=== PATIENT | female | born 1955 | race Caucasian/White ===

== ENCOUNTER 2019-02-19 00:53 | Emergency (ER) | payer BC ==
[~2019-02-19] VITALS: Ht 165 cm; Wt 65.9 kg
[2019-02-19] MEDS ORDERED: LEVO75TA6 (01:10)
[2019-02-19] MEDS ORDERED: LACTATED RINGERS 1,000 ML IV ONE (01:24)
[2019-02-19 01:26] LABS: BILIRUBIN,URINE NEGATIVE (NEGATIVE); CLARITY,URINE CLEAR; COLOR,URINE YELLOW; GLUCOSE, URINE (UA) NEGATIVE (NEGATIVE); KETONES,URINE NEGATIVE (NEGATIVE); LEUKOCYTE ESTERASE ,URINE 3+ (NEGATIVE); NITRITE,URINE NEGATIVE (NEGATIVE); PH,URINE 6 (5-9); PROTEIN,URINE 1+ (NEGATIVE); UROBILINOGEN,URINE NORMAL (NORMAL)
--- NOTE | 2019-02-19 01:28 | ED Abdominal Pain ---
General Chief Complaint: Abdominal/GI Problems Stated Complaint: PAIN IN RT SIDE Nursing Triage Note: intermittant right sided abdominal pain since 02/14/19, denies n/v/d, fever Sepsis Screen: No Definite Risk Source of Information: Patient History of Present Illness Date Seen by Provider: Feb 19, 2019 Time Seen by Provider: 01:04 Initial Comments PT ARRIVES VIA POV FROM HOME C/O RIGHT MID ABDOMINAL PAIN SINCE Thursday02/14/19 STATES PAIN COMES AND GOES, THEN STATES "IT'S PROBABLY BEEN THERE THE WHOLE TIME--I JUST IGNORE IT" NOTHING WORSENS OR IMPROVES PAIN NO RADIATION OF PAIN NO NAUSEA/VOMITING/DIARRHEA/CONSTIPATION NO URINARY SYMPTOMS NO FEVER NO HISTORY OF SIMILAR NO PRIOR ABDOMINAL SURGERY PT STATES SHE DOES NOT HAVE ANY MEDICAL PROBLEMS, EXERCISES REGULARLY--RUNS, ETC. HAS NOT TAKEN ANYTHING FOR PAIN SYMPTOMS NO DIFFERENT TODAY PCP: DR. RIVERA Allergies and Home Medications Allergies Coded Allergies: No Known Drug Allergies (Unverified , 02/19/19) Patient Home Medication List Home Medication List Reviewed: Yes Review of Systems Review of Systems Constitutional: no symptoms reported Respiratory: No Symptoms Reported Cardiovascular: No Symptoms Reported Gastrointestinal: See HPI, Abdominal Pain; Denies Constipated, Denies Diarrhea, Denies Nausea, Denies Poor Appetite, Denies Vomiting Genitourinary: No Symptoms Reported Musculoskeletal: no symptoms reported; No back pain Skin: no symptoms reported Psychiatric/Neurological: No Symptoms Reported Endocrine: No Symptoms Reported Hematologic/Lymphatic: No Symptoms Reported Past Jskxkbi-Bozgvs-Kaudsb Hx Patient Social History Alcohol Use: Rarely Uses Recreational Drug Use: No Smoking Status: Never a Smoker 2nd Hand Smoke Exposure: No Recent Foreign Travel: No Contact w/Someone Who Travel: No Recent Infectious Disease Expo: No Recent Hopitalizations: No Physical Abuse: No Sexual Abuse: No Mistreated: No Fear: No Immunizations Up To Date Tetanus Booster (TDap): Unknown Seasonal Allergies Seasonal Allergies: No Past Medical History Surgeries: No Respiratory: No Cardiac: No Neurological: No : No 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 oz. kg; 24.00 BMI Method: General Appearance: WD/WN, no apparent distress, other (WALKS UPRIGHT AND MOVES WITHOUT DIFFICULTY) HEENT: PERRL/EOMI; No scleral icterus (R), No scleral icterus (L), No pale conjunctivae (R), No pale conjunctivae (L) Neck: normal inspection Respiratory: normal breath sounds, no respiratory distress, no accessory muscle use Cardiovascular: regular rate, rhythm, no edema, no JVD, no murmur Gastrointestinal: normal bowel sounds, soft, no organomegaly, no pulsatile mass; No distended, No guarding, No rebound; tenderness (MILD TENDERNESS TO RIGHT MID ABDOMEN); No hernia, No mass Extremities: normal inspection, no pedal edema, normal capillary refill Back: normal inspection, no CVA tenderness, no vertebral tenderness 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, no motor/sensory deficits, alert, normal mood/affect, oriented x 3 Skin: normal color, warm/dry; No rash Progress/Results/Core Measures Results/Orders Lab Results Laboratory Tests Test 02/19/19 01:05 02/19/19 01:15 Range/Units Urine Color YELLOW Urine Clarity CLEAR Urine pH 6 5-9 Urine Specific [place] 1.025 H 1.016-1.022 Urine Protein 1+ H NEGATIVE Urine Glucose (UA) NEGATIVE NEGATIVE Urine Ketones NEGATIVE NEGATIVE Urine Nitrite NEGATIVE NEGATIVE Urine Bilirubin NEGATIVE NEGATIVE Urine Urobilinogen NORMAL NORMAL MG/DL Urine Leukocyte Esterase 3+ H NEGATIVE Urine RBC (Auto) 3+ H NEGATIVE Urine RBC 2-5 H /HPF Urine WBC 5-10 H /HPF Urine Squamous Epithelial Cells 10-25 H /HPF Urine Crystals NONE /LPF Urine Bacteria MODERATE H /HPF Urine Casts NONE /LPF Urine Mucus NEGATIVE /LPF Urine Culture Indicated YES White Blood Count 5.9 4.3-11.0 10^3/uL Red Blood Count 4.70 4.35-5.85 10^6/uL Hemoglobin 13.6 11.5-16.0 G/DL Hematocrit 41 35-52 % Mean Corpuscular Volume 87 80-99 FL Mean Corpuscular Hemoglobin 29 25-34 PG Mean Corpuscular Hemoglobin Concent 33 32-36 G/DL Red Cell Distribution Width 12.5 10.0-14.5 % Platelet Count 304 130-400 10^3/uL Mean Platelet Volume 9.0 7.4-10.4 FL Neutrophils (%) (Auto) 53 42-75 % Lymphocytes (%) (Auto) 32 12-44 % Monocytes (%) (Auto) 10 0-12 % Eosinophils (%) (Auto) 5 0-10 % Basophils (%) (Auto) 0 0-10 % Neutrophils # (Auto) 3.1 1.8-7.8 X 10^3 Lymphocytes # (Auto) 1.9 1.0-4.0 X 10^3 Monocytes # (Auto) 0.6 0.0-1.0 X 10^3 Eosinophils # (Auto) 0.3 0.0-0.3 10^3/uL Basophils # (Auto) 0.0 0.0-0.1 10^3/uL Sodium Level 141 135-145 MMOL/L Potassium Level 3.8 3.6-5.0 MMOL/L Chloride Level 108 H 98-107 MMOL/L Carbon Dioxide Level 23 21-32 MMOL/L Anion Gap 10 5-14 MMOL/L Blood Urea Nitrogen 19 H 7-18 MG/DL Creatinine 1.00 0.60-1.30 MG/DL Estimat Glomerular Filtration Rate 56 BUN/Creatinine Ratio 19 Glucose Level 98 70-105 MG/DL Calcium Level 9.9 8.5-10.1 MG/DL Corrected Calcium 9.9 8.5-10.1 MG/DL Total Bilirubin 0.4 0.1-1.0 MG/DL Aspartate Amino Transf (AST/SGOT) 19 5-34 U/L Alanine Aminotransferase (ALT/SGPT) 7 0-55 U/L Alkaline Phosphatase 62 40-136 U/L Total Protein 7.7 6.4-8.2 GM/DL Albumin 4.0 3.2-4.5 GM/DL Amylase Level 36 25-125 U/L Lipase 36 8-78 U/L My Orders Orders - OCHOA ROY DO Ed Iv/Invasive Line Start (02/19/19 01:09) Amylase (02/19/19 01:09) Cbc With Automated Diff (02/19/19 01:09) Comprehensive Metabolic Panel (02/19/19 01:09) Lipase (02/19/19 01:09) Ua Culture If Indicated (02/19/19 01:09) Ed Iv/Invasive Line Start (02/19/19 01:24) Lactated Ringers (Lr 1000 Ml Iv Solution (02/19/19 01:24) Urine Culture (02/19/19 01:05) Ct Abd/Pelvis Wo(Kidney Stone) (02/19/19 01:55) Acute Abd Series (02/19/19 01:55) Nitrofurantoin Capsule,Macro (Macrobid C (02/19/19 03:00) Ketorolac Injection (Toradol Injection) (02/19/19 03:00) Medications Given in ED Current Medications Medications Dose Ordered Sig/Mirtha Route Start Time Stop Time Status Last Admin Dose Admin Lactated Ringer's 1,000 ml @ 0 mls/hr Q0M ONCE IV 02/19/19 01:24 02/19/19 01:25 DC 02/19/19 01:40 0 MLS/HR Vital Signs/I&O 02/19/19 01:03 Temp 36.7 Pulse 78 Resp 18 B/P (MAP) 159/109 (126) Pulse Ox 98 O2 Delivery Room Air Blood Pressure Mean: 126 Progress Progress Note : Progress Note UNEVENTFUL ER STAY Diagnostic Imaging Comments ABDOMEN XRAYS--NO ACUTE PROCESS, MODERATE AMOUNT OF STOOL IN RIGHT COLON, PENDING RADIOLOGIST REVIEW CT ABDOMEN/PELVIS--NO ACUTE PROCESS, PER [facility] VIA FAX AT 0240 Reviewed: Reviewed by Me Departure Impression Primary Impression: Urinary tract infection Disposition: HOME, SELF-CARE Condition: Improved Departure-Patient Inst. Referrals: CHRISTINE RIVERA MD (PCP) Primary Care Physician Patient Instructions: Urinary Tract Infection, Adult (DC) Add. Discharge Instructions: LOTS OF CLEAR LIQUIDS ACTIVITIES USUAL FOLLOW UP WITH DR. RIVERA NEXT WEEK FOR FURTHER CARE All discharge instructions reviewed with patient and/or family. Voiced understanding. Scripts Ketorolac Tromethamine (Ketorolac Tromethamine) 10 Mg Tablet 10 MG PO Q6H for Pain, #15 TAB Prov: MANUELAOCHOA K DO 02/19/19 Nitrofurantoin Monohyd/M-Cryst (Macrobid 100 mg Capsule) 100 Mg Capsule 100 MG PO BID, #20 CAP Prov: MANUELA,OCHOA K DO 02/19/19 OCHOA ROY DO Feb 19, 2019 01:28
[2019-02-19 01:31] LABS: BASOPHILS % (AUTO) 0 % (0-10); EOSINOPHILS # (AUTO) 0.3 10^3/uL (0.0-0.3); EOSINOPHILS % (AUTO) 5 % (0-10); HEMATOCRIT 41 % (35-52); HEMOGLOBIN 13.6 G/DL (11.5-16.0); LYMPHOCYTES # (AUTO) 1.9 X 10^3 (1.0-4.0); LYMPHOCYTES % (AUTO) 32 % (12-44); MEAN CORPUSCULAR HEMOGLOBIN 29 PG (25-34); MEAN CORPUSCULAR HGB CONC 33 G/DL (32-36); MEAN CORPUSCULAR VOLUME 87 FL (80-99); MONOCYTES # (AUTO) 0.6 X 10^3 (0.0-1.0); MONOCYTES % (AUTO) 10 % (0-12); NEUTROPHILS # (AUTO) 3.1 X 10^3 (1.8-7.8); NEUTROPHILS % (AUTO) 53 % (42-75); PLATELET COUNT 304 10^3/uL (130-400); RED CELL DISTRIBUTION WIDTH 12.5 % (10.0-14.5); WHITE BLOOD COUNT 5.9 10^3/uL (4.3-11.0)
[2019-02-19 01:51] LABS: BACTERIA,URINE MODERATE /HPF
[2019-02-19 02:02] LABS: BILIRUBIN,TOTAL 0.4 MG/DL (0.1-1.0); CALCIUM 9.9 MG/DL (8.5-10.1); POTASSIUM 3.8 MMOL/L (3.6-5.0); TOTAL PROTEIN 7.7 GM/DL (6.4-8.2)
[2019-02-19] MEDS ORDERED: NITR-65 PO (02:55)
[2019-02-19] MEDS ORDERED: KETO10TA PO (02:55)
[2019-02-19] MEDS ORDERED: NITROFURANTOIN 100 MG (MACROBID) CAPSULE PO ONE (03:00)
[2019-02-19] MEDS ORDERED: KETOROLAC 30 MG/ML VIAL IVP ONE (03:00)
[2019-02-19 03:06] VITALS: BP 161/97
--- NOTE | 2019-02-19 06:13 | Diagnostic Imaging Report ---
CLINICAL INDICATION: History of intermittent right-sided abdominal pain since 02/14/2019. EXAMS: X-ray of the chest PA view and x-ray of the abdomen supine and upright views. COMPARISONS: KUB x-ray dated 11/20/2007. FINDINGS: LUNGS/ PLEURA: Lungs are clear. There is no pneumothorax. There is no pleural effusion. MEDIASTINUM: Unremarkable. PULMONARY VASCULATURE: Unremarkable. HEART: Unremarkable. 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 ABDOMEN AND PELVIS: There is a moderate to large amounts of stool in the right side of the colon. There is no evidence of intestinal obstruction. There is no evidence of abdominal free air. There are no focal calcifications overlying the expected regions/ pathways of both kidneys, ureters, and bladder regions. Phleboliths are seen in the pelvis. IMPRESSION: 1: Unremarkable chest x-ray exam with no radiographic evidence of acute cardiopulmonary process. 2: Unremarkable x-ray of the abdomen. There is a moderate to large amount of stool involving the right colon. Dictated by: Dictated on workstation # [id number]
--- NOTE | 2019-02-19 06:39 | Diagnostic Imaging Report ---
PROCEDURE: CT urinary tract, rule out kidney stone. TECHNIQUE: Multiple contiguous axial images were obtained through the abdomen and pelvis without the use of intravenous contrast. Auto Exposure Controls were utilized during the CT exam to meet ALARA standards for radiation dose reduction. INDICATION: Right-sided abdominal pain. No prior studies are available for comparison. FINDINGS: The lung bases are clear. Liver and gallbladder are unremarkable. No biliary ductal dilatation is seen. Pancreas and spleen are unremarkable. No adrenal mass is identified. No definite renal calculi or hydronephrosis is identified. There is a cortical low density lower pole right kidney measuring approximately 2 cm most suggestive of a cyst. Aorta is non-aneurysmal. The small and large bowel loops are normal caliber. There is no obstruction. There is no ascites. Bladder and uterus are unremarkable. IMPRESSION: No acute features in the abdomen and pelvis on this noncontrast study. Dictated by: Dictated on workstation # [id number]
== END 2019-02-19 03:06 | disposition home or self-care (01) ==
LOC: EDUNIT# 00:53 → ER 00:55
DX: N39.0 Urinary tract infection, site not specified (principal); E03.9 Hypothyroidism, unspecified
CPT/HCPCS: 36415; 74022; 74176; 80053; 81000; 82150; 83690; 85025; 87088; 96361; 96374

== ENCOUNTER → 2019-09-16 | Outpatient (CLI) | payer BC ==
[~2019-09-16] MED LIST: KETO10TA PO; LEVO75TA6; NITR-65 PO
[2019-09-16 16:46] LABS: CLARITY,URINE SL CLOUDY; COLOR,URINE YELLOW; GLUCOSE, URINE (UA) NEGATIVE (NEGATIVE); KETONES,URINE NEGATIVE (NEGATIVE); LEUKOCYTE ESTERASE ,URINE TRACE (NEGATIVE); NITRITE,URINE NEGATIVE (NEGATIVE); PH,URINE 6.5 (5-9); PROTEIN,URINE NEGATIVE (NEGATIVE)
[2019-09-16 16:52] LABS: BILIRUBIN,URINE 1+ (NEGATIVE)
[2019-09-16 16:54] LABS: BACTERIA,URINE TRACE /HPF; RBC,URINE 0-2 /HPF; WBC,URINE 0-2 /HPF
== END ==
LOC: LAB 16:31
PROVIDERS: ATTEND Nurse Practitioner Family
DX: R30.0 Dysuria (principal)
CPT/HCPCS: 81000; 87088

== ENCOUNTER → 2019-11-28 | Outpatient (CLI) | payer BC ==
[~2019-11-28] MED LIST changes: +LEVO88TA54 PO
--- NOTE | 2019-11-28 08:53 | Diagnostic Imaging Report ---
PROCEDURE: US Gallbladder. TECHNIQUE: Multiple real-time grayscale images were obtained over the right upper quadrant in various projections. INDICATION: Abdominal pain with elevated liver enzymes. The liver is normal in size at 14.4 cm. No discrete liver mass is detected. The portal vein is patent and shows normal direction of flow. Gallbladder contains numerous gallstones. No wall thickening or biliary duct dilatation is identified. The pancreas is unremarkable. Aorta is nonaneurysmal. IVC is patent. The right kidney contains an approximately 2 cm cyst in the lower pole. No calculi or hydronephrosis is seen. There is no ascites. IMPRESSION: 1. Cholelithiasis without evidence of acute cholecystitis. 2. A 2 cm right renal cyst. Dictated by: Dictated on workstation # [id number]
== END ==
LOC: RAD 06:53
PROVIDERS: ATTEND Nurse Practitioner Family
DX: K80.20 Calculus of gallbladder without cholecystitis without obstruction (principal); N28.1 Cyst of kidney, acquired
CPT/HCPCS: 76705

== ENCOUNTER 2019-12-05 05:35 | Outpatient (RCR) | payer BC ==
[~2019-12-05] VITALS: Ht 165.1 cm; Wt 71.4 kg
[2019-12-08] MEDS ORDERED: HYDR-3817 PO ×2 (11:38)
--- NOTE | 2019-12-08 18:02 | OPERATIVE REPORT ---
DATE OF SERVICE: 12/05/2019 ATTENDING PRIMARY CARE PHYSICIAN: Cinthya Mayes MD PREOPERATIVE DIAGNOSIS: Symptomatic chronic calculous cholecystitis. POSTOPERATIVE DIAGNOSIS: Symptomatic chronic calculous cholecystitis. PROCEDURE: Laparoscopic cholecystectomy. SURGEON: Mo Zapata MD. COIL WINDING MACHINES SET UP MECHANIC: Luan Chamorro APRN. ANESTHESIA: General endotracheal. ESTIMATED BLOOD LOSS: Minimal. FINDINGS: Multiple gallstones. DISPOSITION: The patient tolerated the procedure well. INDICATIONS: The patient is a 64-year-old female who has had pain in the epigastric region as well as right upper abdominal quadrant as well as associated nausea usually after eating meals. She states that grill and smoked meats tend to make this the worse. She states that this has been going on for a few years; however, in the past six months this have become significantly more frequent as well as more severe. She underwent an ultrasound, which did show multiple gallstones. DESCRIPTION OF PROCEDURE: The patient was brought to the operating room, laid supine on the table. After adequate IV pain and stated medications and general endotracheal intubation, the abdomen was prepped and draped in standard surgical fashion. A 0.5% Marcaine with epinephrine was then used to anesthetize the overlying skin in the left upper abdominal quadrant and a transverse skin incision made using a 15 blade. An 0 silk suture was applied to the medial aspect of the incision for traction and a Veress needle inserted with a low opening pressure of 0 mmHg. The abdomen was then insufflated to 15 mmHg pressure. The Veress needle removed and a 5 mm XL trocar placed followed by a 5 mm 45-degree angle laparoscope visualizing the peritoneal cavity. A 4-quadrant abdominal exploration was performed. The gallbladder was slightly distended, no gallbladder wall thickening. Was visualized the omentum, stomach, liver, omentum appeared normal. Under direct visualization, we then proceeded to place a supraumbilical 10 mm port after the skin and peritoneal lining were anesthetized using 0.5% Marcaine with epinephrine and a transverse skin incision made using a 15 blade. In a similar manner, a right upper abdominal quadrant 5 mm port was placed. The patient was then placed in a reverse Trendelenburg position as well as plane right side up, left side down. The fundus of the gallbladder was then retracted anteriorly and superiorly. The hepatoduodenal ligament was then opened using electrocautery. Blunt dissection as well as electrocautery on the hook instrument. The entire critical view of safety was identified including the triangle of Calot as well as the cystic duct and artery is only two structures going into the gallbladder as well as the cystic plate behind the proximal gallbladder. A timeout was then taken and the cystic duct and artery were then clipped proximally, distally and cut with EndoShears. The gallbladder was then dissected off the liver bed using cautery on hook instrument with visualization of good hemostasis as well as no leaking ducts of Luschka. The gallbladder was removed through the 10 mm port site using an EndoCatch bag. The 10 mm port site fascia and peritoneum were then closed under direct visualization using a Son-Brian device and 0 Vicryl suture. The abdomen was desufflated and the remaining ports removed. All skin incisions were closed using 4-0 Monocryl running subcuticular sutures. Wounds were then cleaned and covered with Dermabond. The patient tolerated the procedure well. We will start IV normal pain medication as well as a clear liquid diet. When she is tolerating clears, has good pain control with oral pain medications, ambulating well, we will discharge her home. She will be instructed to do no heavy lifting or exertion for the next two weeks. Job ID: [id number] DocumentID: [id number] Dictated Date: 12/08/2019 14:29:56 Fiscal Services Manager Date: 12/08/2019 18:02:14 Dictated By: MO ZAPATA MD
== END 2019-12-05 10:27 | disposition home or self-care (01) ==
LOC: PREOP 05:35
PROVIDERS: ATTEND Surgery
DX: Z01.812 Encounter for preprocedural laboratory examination (principal); K80.20 Calculus of gallbladder without cholecystitis without obstruction; Z20.828 Contact with and (suspected) exposure to other viral communicable diseases
CPT/HCPCS: 87635

== ENCOUNTER 2019-12-08 10:50 | Day surgery (SDC) | payer BC, MEDICARE ==
[~2019-12-08] VITALS: Ht 165.1 cm; Wt 71.4 kg
[2019-12-08] VITALS (12 sets, daily range): BP systolic 114–141; BP diastolic 71–91
[2019-12-08] MEDS: LACTATED RINGERS 1,000 ML IV PRN ×2 (11:11→13:56)
[2019-12-08] MEDS ORDERED: ceFAZolin 2 GM IV Premixed 50 ML IV ONE (11:15)
[2019-12-08] MEDS ORDERED: ceFAZolin 2 GM IV Premixed 50 ML ONE (11:20)
--- NOTE | 2019-12-08 11:36 | Progress Note-Pre Operative ---
Pre-Operative Progress Note H&P Reviewed The H&P was reviewed, patient examined and no changes noted. Date Seen by Provider: Dec 08, 2019 Time Seen by Provider: 11:15 Date H&P Reviewed: Dec 08, 2019 Time H&P Reviewed: 11:15 Pre-Operative Diagnosis: chronic calculous cholecystitis MO ZAPATA MD Dec 08, 2019 11:36
[2019-12-08] MEDS ORDERED: HYDR-3817 PO (11:38)
--- NOTE | 2019-12-08 11:38 | Discharge Inst-Surgical ---
D/C Lap Instructions-BENNY New, Converted, or Re-Newed RX: RX on Chart Follow Up Appt in 2 weeks Activity as tolerated No driving for 24 hours No driving while on pain medications Incentive Spirometry use every 2 hours while awake Regular Diet Symptoms to Report: Fever over 101 degree F, Nausea/Vomiting Infection Signs and Symptoms to report: Increased redness, Foul odor of wound, Increased drainage Bathing instructions: May shower Operative Area Clean/Dry; Keep incision clean/dry If any problems/questions: Contact your physician or go to Emergency Room MO ZAPATA MD Dec 08, 2019 11:38
[2019-12-08] MEDS ORDERED: MIDAZOLAM 2 MG/2 ML (VERSED) VIAL ONE (11:42)
[2019-12-08] MEDS ORDERED: proPOfol 200 MG/20 ML (DIPRIVAN) VIAL IV ONE (11:42)
[2019-12-08] MEDS ORDERED: ONDANSETRON 4 MG/2 ML (SDV) Z0FRAN ONE (11:42)
[2019-12-08] MEDS ORDERED: fentaNYL INJECTION 100 MCG/2 ML AMP ONE (11:42)
[2019-12-08] MEDS ORDERED: ROCURONIUM 10 MG/ML 5 ML SYRINGE IV ONE (11:42)
[2019-12-08] MEDS ORDERED: LIDOCAINE PF 2% 5 ML (XYLOCAINE) VIAL ONE (11:42)
[2019-12-08] MEDS ORDERED: SEVOFLURANE (ULTANE) 15 ML INHAL SOLN ONE ×4 (11:43→13:49)
[2019-12-08] MEDS ORDERED: GLYCOPYRROLATE 0.2 MG/ML (ROBINUL) 2 ML VIAL ONE (11:43)
[2019-12-08] MEDS ORDERED: NEOSTIGMINE 3 MG/3 ML VIAL ONE (11:43)
[2019-12-08] MEDS ORDERED: morphine INJ 10 MG/ML 1ML (SYR OR VIAL) IVP PRN ×2 (11:45)
[2019-12-08] MEDS ORDERED: ACETAMINOPHEN 325 MG TABLET PO PRN (11:45)
[2019-12-08] MEDS ORDERED: ONDANSETRON 4 MG/2 ML (SDV) Z0FRAN IVP PRN ×2 (11:45→14:45)
[2019-12-08] MEDS ORDERED: oxyCODONE/APAP 5/325MG (PERCOCET 5) TABLET PO PRN (11:45)
[2019-12-08] MEDS ORDERED: BUP/EPI 0.5% 1:200,000 (MARCAINE) 10ML VIAL IJ ONE (12:35)
--- NOTE | 2019-12-08 14:24 | Progress Note-Post Operative ---
Post-Operative Progess Note Surgeon (s)/Planer Setter (s) Surgeon MO ZAPATA MD Planer Setter: holly malcolm HAIRSPRING INSPECTOR Pre-Operative Diagnosis chronic calculous cholecystitis Post-Operative Diagnosis same Procedure & Operative Findings Date of Procedure 12/08/19 Procedure Performed/Findings laparoscopic cholecystectomy. Anesthesia Type get Estimated Blood Loss Estimated blood loss (mL): minimal Specimens/Packing Specimens Removed gallbladder MO ZAPATA MD Dec 08, 2019 14:24
[2019-12-08] MEDS ORDERED: HYDROmorphone 2 MG/ML VIAL (DILAUDID) ONE (14:38)
[2019-12-08] MEDS ORDERED: HYDROmorphone 2 MG/ML VIAL (DILAUDID) IV ONE (14:45)
--- NOTE | 2019-12-08 14:45 | Anesthesia-General Post-Op ---
General Patient Condition Mental Status/LOC: Same as Preop Cardiovascular: Satisfactory Nausea/Vomiting: Absent Respiratory: Satisfactory Pain: Controlled Complications: Absent Post Op Complications Complications None Follow Up Care/Instructions Patient Instructions None needed. Anesthesia/Patient Condition Patient Condition Patient is doing well, no complaints, stable vital signs, no apparent adverse anesthesia problems. No complications reported per nursing. D/C home per [facility] [place] Criteria: Yes ELIZABETH MARCIAL CRNA Dec 08, 2019 14:45
--- NOTE | 2019-12-19 13:26 | OPERATIVE REPORT ---
NAME: TER[facility] REC#: [id number] : 1955 LOCATION: ADMIT DATE: 12/08/19 DATE OF SERVICE: 12/08/2019 ATTENDING PRIMARY CARE PHYSICIAN: Cinthya Mayes MD PREOPERATIVE DIAGNOSIS: Symptomatic chronic calculous cholecystitis. POSTOPERATIVE DIAGNOSIS: Symptomatic chronic calculous cholecystitis. PROCEDURE: Laparoscopic cholecystectomy. SURGEON: Mo Prince MD. REFINERY OPERATOR ASSISTANT: Luan Chamorro APRN. ANESTHESIA: General endotracheal. ESTIMATED BLOOD LOSS: Minimal. FINDINGS: Multiple gallstones. DISPOSITION: The patient tolerated the procedure well. INDICATIONS: The patient is a 64-year-old female who has had pain in the epigastric region as well as right upper abdominal quadrant as well as associated nausea usually after eating meals. She states that grill and smoked meats tend to make this the worse. She states that this has been going on for a few years; however, in the past six months this have become significantly more frequent as well as more severe. She underwent an ultrasound, which did show multiple gallstones. DESCRIPTION OF PROCEDURE: The patient was brought to the operating room, laid supine on the table. After adequate IV pain and stated medications and general endotracheal intubation, the abdomen was prepped and draped in standard surgical fashion. A 0.5% Marcaine with epinephrine was then used to anesthetize the overlying skin in the left upper abdominal quadrant and a transverse skin incision made using a 15 blade. An 0 silk suture was applied to the medial aspect of the incision for traction and a Veress needle inserted with a low opening pressure of 0 mmHg. The abdomen was then insufflated to 15 mmHg pressure. The Veress needle removed and a 5 mm XL trocar placed followed by a 5 mm 45-degree angle laparoscope visualizing the peritoneal cavity. A 4-quadrant abdominal exploration was performed. The gallbladder was slightly distended, no gallbladder wall thickening. Was visualized the omentum, stomach, liver, omentum appeared normal. Under direct visualization, we then proceeded to place a supraumbilical 10 mm port after the skin and peritoneal lining were anesthetized using 0.5% Marcaine with epinephrine and a transverse skin incision made using a 15 blade. In a similar manner, a right upper abdominal quadrant 5 mm port was placed. The patient was then placed in a reverse Trendelenburg position as well as plane right side up, left side down. The fundus of the gallbladder was then retracted anteriorly and superiorly. The hepatoduodenal ligament was then opened using electrocautery. Blunt dissection as well as electrocautery on the hook instrument. The entire critical view of safety was identified including the triangle of Calot as well as the cystic duct and artery is only two structures going into the gallbladder as well as the cystic plate behind the proximal gallbladder. A timeout was then taken and the cystic duct and artery were then clipped proximally, distally and cut with EndoShears. The gallbladder was then dissected off the liver bed using cautery on hook instrument with visualization of good hemostasis as well as no leaking ducts of Luschka. The gallbladder was removed through the 10 mm port site using an EndoCatch bag. The 10 mm port site fascia and peritoneum were then closed under direct visualization using a Son-Brian device and 0 Vicryl suture. The abdomen was desufflated and the remaining ports removed. All skin incisions were closed using 4-0 Monocryl running subcuticular sutures. Wounds were then cleaned and covered with Dermabond. The patient tolerated the procedure well. We will start IV normal pain medication as well as a clear liquid diet. When she is tolerating clears, has good pain control with oral pain medications, ambulating well, we will discharge her home. She will be instructed to do no heavy lifting or exertion for the next two weeks. Job ID: [id number] DocumentID: [id number] Dictated Date: 12/08/2019 14:29:56 Working Supervisor Date: 12/08/2019 18:02:14 Dictated By: MO PRINCE MD <Dictated by MO PRINCE MD> <Electronically signed by MO PRINCE MD> 12/09/19 1035 MTDD
== END 2019-12-08 17:10 | disposition home or self-care (01) ==
LOC: SDC 10:50
PROVIDERS: ATTEND Surgery
DX: K80.10 Calculus of gallbladder with chronic cholecystitis without obstruction (principal); E03.9 Hypothyroidism, unspecified; Z11.2 Encounter for screening for other bacterial diseases; Z79.890 Hormone replacement therapy
CPT/HCPCS: 87081; 88304

== ENCOUNTER → 2021-09-25 | Outpatient (CLI) | payer BC ==
[~2021-09-25] MED LIST changes: +HYDR-3817 PO
== END ==
LOC: RAD 14:15
PROVIDERS: ATTEND Nurse Practitioner Family
DX: Z12.31 Encounter for screening mammogram for malignant neoplasm of breast (principal)
CPT/HCPCS: 77063; 77067

== ENCOUNTER 2022-12-25 23:12 | Emergency (ER) | payer BC ==
[~2022-12-25] VITALS: Ht 165.1 cm; Wt 71.4 kg
[2022-12-25 23:21] VITALS: BP 138/88
--- NOTE | 2022-12-25 23:29 | ED General ---
General Stated Complaint: COVID +/FEVER/COUGH/CONGESTION Source of Information: Patient History of Present Illness Date Seen by Provider: Dec 25, 2022 Time Seen by Provider: 23:24 Allergies and Home Medications Allergies Coded Allergies: No Known Drug Allergies (Unverified , 02/19/19) Patient Home Medication List Levothyroxine Sodium (Levothyroxine Sodium) 88 Mcg Tablet, 88 MCG PO DAILY, (Reported) Entered as Reported by: HUSSEIN DAVID on 11/30/19 1220 Discontinued Medications Hydrocodone/Acetaminophen (Hydrocodone-Acetamin 7.5-325) 1 Each Tablet, 1 EACH PO Q4H Discontinued Reason: No Longer Taking Prescribed by: MO ZAPATA on 12/08/19 1138 Last Action: Discontinued Past Pvoodxd-Yzifdx-Tapzdi Hx Immunizations Up To Date Tetanus Booster (TDap): Unknown Seasonal Allergies Seasonal Allergies: No Past Medical History Surgeries: Yes (L bunionectomy) Tonsillectomy Respiratory: No Currently Using CPAP: No Currently Using BIPAP: No Cardiac: No Neurological: No [employer] History: Menopausal Genitourinary: No Gastrointestinal: Yes Gall Bladder Disease Musculoskeletal: No Endocrine: Yes Hypothyroidsim HEENT: No Cancer: No Psychosocial: No Integumentary: No Blood Disorders: No Adverse Reaction/Blood Tranf: No Physical Exam Vital Signs Vital Signs - First Documented 12/25/22 23:21 Temp 38.5 Pulse 96 Resp 18 B/P (MAP) 138/88 (105) Pulse Ox 97 O2 Delivery Room Air Capillary Refill : Height, Weight, BMI Height: '" Weight: lbs. oz. kg; 26.19 BMI Method: Progress/Results/Core Measures Suspected Sepsis SIRS Temperature: Pulse: Respiratory Rate: Blood Pressure / Mean: Results/Orders My Orders Orders - OCHOA ROY DO Ibuprofen Tablet (Ibuprofen Tablet) (12/25/22 23:30) Acetaminophen Tablet (Acetaminophen Ta (12/25/22 23:30) Medications Given in ED Current Medications Medications Dose Ordered Sig/Mirtha Route Start Time Stop Time Status Last Admin Dose Admin Acetaminophen 1,000 mg ONCE ONCE PO 12/25/22 23:30 12/25/22 23:31 DC 12/25/22 23:35 1,000 MG Ibuprofen 800 mg ONCE ONCE PO 12/25/22 23:30 12/25/22 23:31 DC 12/25/22 23:35 800 MG Vital Signs/I&O 12/25/22 12/25/22 12/25/22 23:21 23:35 23:35 Temp 38.5 38.5 38.5 Pulse 96 Resp 18 B/P (MAP) 138/88 (105) Pulse Ox 97 O2 Delivery Room Air Capillary Refill : Departure Impression Primary Impression: COVID-19 virus infection Disposition: HOME, SELF-CARE Condition: Stable Departure-Patient Inst. Decision time for Depature: 23:27 Referrals: CHRISTINE RIVERA MD (PCP/Family) Primary Care Physician Patient Instructions: COVID-19 ED Add. Discharge Instructions: LOTS OF CLEAR LIQUIDS--WATER, BROTH, JELLO, GATORADE--DRINK ENOUGH SO YOU ARE URINATING EVERY 2-3 HOURS WHILE AWAKE YOU MAY TAKE TYLENOL 1 GRAM 4 TIMES A DAY AND MOTRIN 800 MG 4 TIMES A DAY FOR PAIN OR FEVER OVER THE COUNTER MEDICATIONS FOR COUGH AND CONGESTION, SUCH MUCINEX CM, CLARITIN D, FLONASE NASAL SPRAY QUARANTINE FOR THE NEXT 7 DAYS FOLLOW UP WITH YOUR DR IN 4-5 DAYS IF NO BETTER RETURN TO ER IF YOU DEVELOP DIFFICULTY BREATHING OR SIGNS OF DEHYDRATION OCHOA ROY DO Dec 25, 2022 23:29
[2022-12-25] MEDS ORDERED: IBUPROFEN 800 MG TABLET PO ONE ×2 (23:30→23:45)
[2022-12-25] MEDS ORDERED: ACETAMINOPHEN 500 MG TABLET PO ONE (23:30)
[2022-12-25] MEDS ORDERED: ACETAMINOPHEN 500 MG TABLET ONE (23:45)
== END 2022-12-25 23:47 | disposition home or self-care (01) ==
LOC: EDUNIT# 23:12 → ER 23:14
DX: U07.1 COVID-19 (principal); R50.9 Fever, unspecified; R05.9 Cough, unspecified; R09.81 Nasal congestion
CPT/HCPCS: 99283